=== PATIENT | female | born 1985 | race Hispanic/Latino ===

== ENCOUNTER 2020-12-30 10:16 | Day surgery (SDC) | payer BC ==
[2020-12-30] MEDS ORDERED: Ringers Lactate 1,000 ML IV ONE (10:28)
[2020-12-30] MEDS ORDERED: LIDOCAINE 1% MPF 2 ML AMPULE ONE ×2 (11:07→11:20)
[2020-12-30] MEDS ORDERED: propofoL 200 MG/20 ML VIAL IV ONE ×3 (11:07→11:08)
[2020-12-30] MEDS ORDERED: EPINEPHRINE/PF 1 MG/ML AMP ONE (11:13)
[2020-12-30] MEDS ORDERED: EPHEDRINE SULF 50 MG/ML VIAL ONE (11:20)
--- NOTE | 2020-12-30 11:44 | ENDO RPT ---
[address], [address] EGD PROCEDURE REPORT EXAM DATE: 12/30/2020 PATIENT NAME: Deborah Jeffrey MR#: [id number] BIRTHDATE: 1985 ATTENDING: Antonio Vazquez DR STATUS: outpatient TRANSFORMATION ARCHITECT: Nevaeh ARREAGA and Jennifer Erazo RN INDICATIONS: The patient is a 35 yr old Female here for an EGD due to mid epigastric abdominal pain PROCEDURE PERFORMED: EGD with biopsy for H. pylori MEDICATIONS: Per Anesthesia. TOPICAL ANESTHETIC: none CONSENT: The patient understands the risks and benefits of the procedure and understands that these risks include, but are not limited to: sedation, allergic reaction, infection, perforation and/or bleeding. Alternative means of evaluation and treatment include, among others: physical exam, x-rays, and/or surgical intervention. The patient elects to proceed with this endoscopic procedure. DESCRIPTION OF PROCEDURE: During intra-op preparation period all mechanical medical equipment was checked for proper function. Hand hygiene and appropriate measures for infection prevention was taken. Procedure, possible complications, and alternatives including but not limited to the possibility of bleeding, perforation, tear, infection, sepsis, need for surgery, need for blood transfusion, and anesthesia related complications were explained to the patient. After the risks, benefits and alternatives of the procedure were thoroughly explained, Informed consent was verified, confirmed and timeout was successfully executed by the treatment team. The patient was placed in the left lateral position. The patient was anesthetized with topical anesthesia. Through the anesthetized oropharyngeal area, the scope was passed without any difficulty. The Pentax EG-[id number] ([id number]) endoscope was introduced through the mouth and advanced to the second portion of the duodenum. Retroflexed views revealed a small hiatal hernia. The gastroscope was then slowly withdrawn and removed. Multiple erosions were found in the body and the antrum of the stomach. Moderate gastritis was found in the body and the antrum of the stomach. A biopsy for H. pylori was taken. A small hiatal hernia was found in the gastroesophageal junction. Located 29 cm from the point of entry. 29 cm ADVERSE EVENTS: There were no complications. IMPRESSIONS: Multiple erosions were found in the body and the antrum of the stomach RECOMMENDATIONS: 1. anti-reflux regimen 2. acid suppression therapy 3. await biopsy results 4. follow-up: office 2 week(s) 5. avoid NSAIDS 6. follow-up of helicobacter pylori status, treat if indicated REPEAT EXAM: Antonio Vazquez DR eSigned: Antonio Vazquez DR 12/30/2020 11:44 AM cc: CPT CODES: ICD9 CODES: PATIENT NAME: Deborah JeffreyAura MR#: [id number]
[2020-12-30 12:06] VITALS: O2SAT 100
[2020-12-30 12:48] VITALS: BP 105/61; TEMP 97.6
== END 2020-12-30 12:36 | disposition home or self-care (01) ==
LOC: OR 10:16
PROVIDERS: ATTEND Surgery
PROC: 0DB78ZX Excision of Stomach, Pylorus, Via Natural or Artificial Opening Endoscopic, Diagnostic (ICD-10-PCS; 2020-12-30)
PROC: 0DB68ZX Excision of Stomach, Via Natural or Artificial Opening Endoscopic, Diagnostic (ICD-10-PCS; 2020-12-30)
PROC: 0DB98ZX Excision of Duodenum, Via Natural or Artificial Opening Endoscopic, Diagnostic (ICD-10-PCS; principal; 2020-12-30 12:00)
DX: A04.8 Other specified bacterial intestinal infections (principal); K29.50 Unspecified chronic gastritis without bleeding; K25.9 Gastric ulcer, unspecified as acute or chronic, without hemorrhage or perforation; Z20.822 Contact with and (suspected) exposure to COVID-19
CPT/HCPCS: 88312; 88305; 43239; U0003; J2704 ×3; J7120; J0171